=== PATIENT | male | born 1985 | race Caucasian/White ===

== ENCOUNTER 2020-03-25 10:43 | Emergency (ER) | payer OTHER ==
[~2020-03-25] VITALS: Ht 170.2 cm; Wt 81.6 kg
[2020-03-25 10:54] VITALS: Ht 170.2 cm; Wt 81.6 kg
[2020-03-25 14:49] VITALS: BP 120/80
== END 2020-03-25 14:49 | disposition home or self-care (01) ==
LOC: ED 10:43
DX: S70.211A Abrasion, right hip, initial encounter (principal); H53.8 Other visual disturbances; F12.20 Cannabis dependence, uncomplicated; F43.10 Post-traumatic stress disorder, unspecified; Z86.69 Personal history of other diseases of the nervous system and sense organs; Z98.890 Other specified postprocedural states; W22.8XXA Striking against or struck by other objects, initial encounter; Y93.89 Activity, other specified; Y92.89 Other specified places as the place of occurrence of the external cause; Y99.8 Other external cause status
CPT/HCPCS: 82962